=== PATIENT | female | born 1960 | race Caucasian/White ===

== ENCOUNTER 2017-02-22 07:58 | Inpatient (IN) ==
--- NOTE | 2017-02-21 21:23 | Discharge Summary ---
<Mela Gastelum - Last Filed: 02/21/17 21:18> Date of Encounter: 02/21/17 - Discharge Diagnosis (1) Arthritis of knee, right Priority: Primary Status: Acute (2) Status post total knee replacement, right Priority: Primary Status: Acute (3) HLD (hyperlipidemia) Priority: Secondary Status: Chronic Qualifiers: Hyperlipidemia type: pure hypercholesterolemia Qualified Code(s): E78.00 - Pure hypercholesterolemia, unspecified; E78.0 - Pure hypercholesterolemia (4) Obesity Priority: Secondary Status: Chronic Qualifiers: Obesity type: unspecified obesity type Obesity classification: unspecified obesity classification Serious obesity comorbidity presence: without serious comorbidity Qualified Code(s): E66.9 - Obesity, unspecified; Z68.36 - Body mass index (BMI) 36.0-36.9, adult; Z68.36 - Body mass index (BMI) 36.0-36.9, adult - Discharge Medications Home Medications: Aspirin Enteric Coated [Aspirin EC] 325 mg PO DAILY #21 tablet. 02/21/17 [Rx] OxyCODONE Immed Rel [Roxicodone 5 MG] 5 mg PO Q6HR PRN #28 tablet 02/21/17 [Rx] Meloxicam 15 mg PO HS 02/22/17 [History] Omeprazole [PriLOSEC] 20 mg PO HS 02/22/17 [History] Simvastatin [Zocor] 20 mg PO HS 02/22/17 [History] Allergies/Adverse Reactions: 3 Allergy/AdvReac Type Severity Reaction Status Date / Time doxycycline Allergy Nausea Verified 02/22/17 12:52 Penicillins [PCN] Allergy Difficulty Verified 02/22/17 12:52 Breathing Primary care physician: Marilin Barnes CNP - Patient Status Disposition: Home, Self-Care Condition: Good - Discharge Instructions Follow Up With: Reagan Badillo MD [Partnered Physician] - 03/24/17 5:55 pm Mela Gastelum, PAC [Physician Continuous Improvement Engineer] - 03/04/17 8:15 am Johnathan Willoughby MD [Partnered Physician] - 03/10/17 1:00 pm Marilin Barnes CNP [Primary Care Provider] - - Hospital Course Hospital course: Ms. Silva is a 56 year old female - Time Spent with Patient Total time spent providing and/or coordinating discharge services: <Reagan Badillo Toni - Last Filed: 02/24/17 08:53> Date of Encounter: 02/24/17 Time of Encounter: 08:52 - Discharge Diagnosis (1) Arthritis of knee, right Priority: Primary Status: Acute (2) Status post total knee replacement, right Priority: Primary Status: Chronic (3) HLD (hyperlipidemia) Priority: Secondary Status: Chronic Qualifiers: Hyperlipidemia type: pure hypercholesterolemia Qualified Code(s): E78.00 - Pure hypercholesterolemia, unspecified; E78.0 - Pure hypercholesterolemia (4) Obesity Priority: Secondary Status: Chronic Qualifiers: Obesity type: unspecified obesity type Obesity classification: adult class 2 (BMI 35 ? 39.9) Serious obesity comorbidity presence: without serious comorbidity Body mass index: BMI 36.0-36.9 Qualified Code(s): E66.9 - Obesity, unspecified; Z68.36 - Body mass index (BMI) 36.0-36.9, adult; Z68.36 - Body mass index (BMI) 36.0-36.9, adult Primary care physician: Marilin Barnes CNP - Patient Status Functional capacity at discharge: uses cane/walker Overall status at discharge: patient is progressing back to baseline - Hospital Course Hospital course: Ms. Silva is a 56 year old female Status post right total knee replacement patient with Tenderness we will check Doppler before discharge The patient had an uneventful postoperative course. They received antibiotics and physical therapy and were discharged in stable condition. There will follow -up in the office in 2 weeks. - Time Spent with Patient Total time spent providing and/or coordinating discharge services:
[2017-02-22] MEDS ORDERED: Ondansetron 4 MG/2 ML VIAL ONE (08:15)
[2017-02-22] MEDS ORDERED: *HR* Propofol 200 MG/20 ML VIAL IVP ONE (08:15)
[2017-02-22] MEDS ORDERED: Lidocaine -MPF 1% 2 ML VIAL ID ONE (08:15)
[2017-02-22] MEDS ORDERED: Lidocaine -MPF 2% 2 ML VIAL ONE (08:15)
[2017-02-22] MEDS ORDERED: *HR* FentaNYL (PF) 100 MCG/2 ML VIAL ONE ×3 (08:15→11:00)
[2017-02-22] MEDS ORDERED: *HR* Midazolam HCl 2 MG/2 ML VIAL ONE ×2 (08:15→08:40)
[2017-02-22] MEDS ORDERED: *HR* Succinylcholine 200 MG/10 ML VIAL IVP ONE (08:15)
[2017-02-22] MEDS ORDERED: *HR* Rocuronium Bromide 50 MG/5 ML VIAL ONE (08:15)
[2017-02-22] MEDS ORDERED: CeFAZolin Syr 2,000MG/20 ML 2,000 MG/20 ML SYRINGE IVPB ONE ×2 (08:15→11:53)
[2017-02-22] MEDS ORDERED: Albuterol 2.5 MG/3 ML NEBULIZER IH ONE (08:15)
--- NOTE | 2017-02-22 08:27 | Anesthesia Evaluation PreOp ---
Date of Encounter: 02/22/17 Time of Encounter: 08:20 - Past History Planned Operation: right TKA Cardiac History: Denies any Significant Hx Pulmonary History: Smoker, Pack/yr (30) GREY PERCHER History: Other (left partial brachial plexus palsy from ) Other Medical History: Denies Any Significant HX Anesthesia History: No Prior Anesthetic Complications, Past Anesthesia (tubal, right shoulder replacement) Alcohol Use: occasionally Drug use: none Medications and Allergies Aspirin Enteric Coated [Aspirin EC] 325 mg PO DAILY #21 tablet.dr 02/21/17 [Rx] OxyCODONE Immed Rel [Roxicodone 5 MG] 5 mg PO Q6HR PRN #28 tablet 02/21/17 [Rx] Meloxicam [Meloxicam] 15 mg PO HS 02/22/17 [History] Omeprazole [PriLOSEC] 20 mg PO HS 02/22/17 [History] Simvastatin [Zocor] 20 mg PO HS 02/22/17 [History] 3 Allergy/AdvReac Type Severity Reaction Status Date / Time No Known Allergies Allergy Verified 02/22/17 08:20 - Meds/Allergy Pre-op Review Medications Reviewed: Yes Allergies Reviewed: Yes Beta Blockers on Current Med List: No Anesthesia Exam Selected Entries 02/22/17 08:12 Temperature 98.2 F Pulse Rate 89 Respiratory Rate 18 Blood Pressure 155/100 O2 Sat by Pulse Oximetry 98 Weight: 113kg NPO (# of Hours): 8 - HEENT Pupil (Motor): EOMI Mallampati: II Teeth: Missing Oral Opening: Greater than 3 - GREY PERCHER LOC: Oriented GREY PERCHER Motor: Normal RUE, Normal LUE, Normal RLE, Normal LLE, Normal Face GREY PERCHER Sensory: Normal: RUE, LUE, RLE, LLE, Face - Cardiac Rhythm: Regular Murmur: None - Pulmonary Breath Sounds: bilateral Clear Respiratory Effort: Symmetrical Anesthesia Assess/Plan ASA Score: 2 Modified Lissy Scale for Level of Consciousness: Cooperative, oriented, and tranquil Anesthetic Plan: General Recovery Plan: PACU (discussed GA and block, agrees to proceed)
[2017-02-22] MEDS: Ringers Solution, Lactated 1,000 ML IVC SCH ×2 (08:32→10:56)
--- NOTE | 2017-02-22 08:32 | History & Physical Report ---
Date of Encounter: 02/22/17 Time of Encounter: 08:31 24 Hour HP Update - Instructions Instructions: If the History and Physical is less than 30 days old and was completed prior to A.M. admission and or procedure and has NOT been updated on calendar day of procedure please complete this update prior to performing procedure. - Update Patient reports changes in Medical Condition: No Changes in examination, assessment, or condition: No Changes in Medication: No Preop tests/diagnostics Reviewed: Yes Surgery Remains Indicated: Yes Consent for Planned Operative Procedure(s) Verified: Yes - Pre-Operative Checklist Preoperative Checklist Indicated: No Prophylactic Antibiotic Ordered: Yes Is VTE Prophylaxis Indicated?: Yes
[2017-02-22] MEDS ORDERED: ROPIVACAINE HCL/PF 0.5% 30 ML VIAL ONE (08:39)
[2017-02-22] MEDS ORDERED: Ondansetron 4 MG/2 ML VIAL IVP ONE (08:52)
[2017-02-22] MEDS ORDERED: *HR* Labetalol 20 MG/4 ML SYRINGE IVP PRN (08:52)
[2017-02-22] MEDS ORDERED: Clindamycin 900 MG/50 ML 900 MG/50 ML IV.SOLN IVPB ONE ×2 (09:05→10:19)
--- NOTE | 2017-02-22 09:25 | Anesthesia Procedures ---
Date of Encounter: 02/22/17 Time of Encounter: 09:11 Procedures: Anesthesia - Nerve Block Procedure Date: 02/22/17 Time: 09:11 Surgical Procedure: right total knee Checklist: Correct Patient Identifier, Correct procedure, History checked Correct side: Right Monitor Applied: BP, Pulse Oximetry Sedation: Versed (mg): 4 Sedation: Fentanyl (mcg): 100 Indication: Post Op Analgesia Block Type: Femoral, Other (ipack) Catheter placed: No Sterile Technique: Yes Ultrasound used: Yes Anatomy identified: Yes Visual spread of Local: Yes Neuro Stimulation: No Blood on Needle Aspiration: No Smooth Injection of Local: Yes Pain with Injection of Local: No Prep: Chlorhexadine Needle: 22 x 50 mm Stimuplex Local: Ropivacaine (30ml 0.5%), Other (30ml 0.25% rop) Volume (cc): 60 Number of Attempts: 1 Complications: None/effective block Vitals: vss, block per request of surgeon
[2017-02-22] MEDS ORDERED: Ethanol\\Acetic Acid\\Na Ace\\Ben 1,000 ML IRRIG.SOLN IR ONE (09:28)
[2017-02-22] MEDS ORDERED: Dexamethasone 4 MG/ML VIAL ONE (10:17)
--- NOTE | 2017-02-22 10:47 | Orthopedic Operative Note ---
Date of procedure: 02/22/17 Pre-op diagnosis: Right knee arthritis Post-op diagnosis: same Procedure: Procedure: Right Total knee replacement Estimated blood loss: 500 cc Hardware: Metal and polyethylene replacement. Arthrex Femur: 4 Tibia: 5 PS insert: 16 Patella: 40 Exam Under anesthesia: Full flexion full extension no instability Procedural Notes: Grade 4 arthritic changes all 3 compartments. Operative procedure: The patient was brought to the operating room and placed on the operating room table. After general anesthesia was administered the operative knee was examined. Findings were noted in the exam under anesthesia. The operative extremity was prepped and draped in sterile surgical fashion. The patient received IV antibiotics prior to skin incision. A standard midline incision was made centered over the patella. The incision was made through the skin and subcutaneous tissue. A medial parapatellar tendon approach was performed. Care was taken to preserve tissue along the medial aspect of the patella. And to protect the patella tendon. The deep MCL was released off the medial tibia. The infra patella fat pad was excised. Knee was brought into flexion. Patient noted to have grade 4 arthritic changes all 3 compartments. The entry hole was made for the intramedullary femoral guide. The guide was seated in 6 degrees of valgus. Anterior cut was made followed by the distal cut. The ACL the PCL the medial and the lateral menisci were excised. The tibia was subluxed forward. The entry hole was made for the intramedullary tibial guide. Guide was seated to resect 2 mm off the more abnormal side. The knee was brought into flexion the distal femur was sized to a 4. The femoral guide was seated, the anterior cut was made followed by the posterior condylar cut, followed by the chamfer cuts. The finishing guide was seated the box cut was made and the lug holes were drilled. The tibia was sized to a 5, the tibial tray was seated and prepared with the large drill followed by the fin cutter. Trial reduction revealed full extension no varus valgus instability with the appropriate 16 PS Arely. The patella was everted and cut was made at the level of the insertion of the quadriceps and patella tendon. The patella was sized to a 40 the guide was seated and the lug holes are drilled. Trial reduction revealed excellent patella tracking. All trial components were removed all bony surfaces were irrigated. The tibia was cemented first followed by the femur. The 16 PS Arely was seated and the knee was brought into full extension. The patella was cemented and held in place with the patellar holding clamp. After the cement had hardened, the knee sat for 2 minutes with a Betadine saline solution. The knee was closed by the PA. The knee was then irrigated out with 2 L of pulse irrigation. The extensor mechanism was closed with #2 FiberWire suture and #2 PDS suture. The subcutaneous tissue was then irrigated and closed deep with #1 PDS suture superficially with 0 PDS suture and skin was closed with zip tie. The patient was then placed in a sterile dressing and a postoperative brace extubated and transferred to recovery room in stable condition. Anesthesia: PATRICIA Surgeon: Reagan Badillo Software Implementation Project Manager: Brisa Mast Condition: stable Disposition: PACU
[2017-02-22] MEDS ORDERED: *HR* HYDROmorphone 2 MG/ML SYRINGE ONE (11:23)
[2017-02-22] MEDS: *HR* HYDROmorphone (PF) 1 MG/ML SYRINGE IVP PRN ×3 (11:27→20:29)
[2017-02-22 11:53] LABS: Hemoglobin 12.3 g/dL (11.5-15.4)
[2017-02-22] MEDS ORDERED: Naloxone 0.4 MG/ML INJ IVP PRN (11:53)
[2017-02-22] MEDS ORDERED: Ringers Solution, Lactated 1,000 ML IVC SCH (11:53)
[2017-02-22] MEDS ORDERED: MOM Conc 10 ML UD.LIQ PO PRN (11:53)
[2017-02-22] MEDS ORDERED: Temazepam 15 MG CAPSULE PO PRN (11:53)
[2017-02-22] MEDS ORDERED: *HR* OxyCODONE Immed Rel 5 MG TABLET PO PRN (11:53)
[2017-02-22] MEDS ORDERED: Sennosides 8.6 MG TABLET PO PRN (11:53)
[2017-02-22] MEDS ORDERED: Ondansetron 4 MG/2 ML VIAL IVP PRN (11:53)
--- NOTE | 2017-02-22 11:54 | Anesthesia Evaluation Post Op ---
Date of Encounter: 02/22/17 Time of Encounter: 11:52 - Vital Signs Vital Signs: vss - Lungs Lungs: Clear Ascult./Percussion - Airway Airway: Non-obstructed - Cardiovascular Baseline Rhythm - Mental Status Mental Status: Alert & Oriented, Answers Appropriately - Pain Pain Scale used: Wiseman-Segura (Faces) (no apparent distress.) - Nausea Vomiting Nausea Vomiting: Not Present - Hydration Hydration: Ice chips - Discharge PostOp Status: Transfer Patient to floor
[2017-02-22] MEDS: *HR* OxyCODONE Immed Rel 5 MG TABLET PO PRN ×3 (14:46→23:26)
[2017-02-22] MEDS: Clindamycin 900 MG/50 ML 900 MG/50 ML IV.SOLN IVPB SCH ×2 (14:46→23:25)
[2017-02-22] MEDS ORDERED: ceFAZolin 2,000 MG in D5% in Water 100 ML IVPB SCH (16:00)
--- NOTE | 2017-02-22 16:44 | Physician Discharge Referral ---
Home Health/Hosp Referral Info Transfer to: Home Health Attending Provider: Dr. Badillo Provider in Charge Post Discharge: PCP - Diagnosis (1) Arthritis of knee, right Priority: Primary Status: Acute (2) Status post total knee replacement, right Priority: Primary Status: Chronic (3) HLD (hyperlipidemia) Priority: Secondary Status: Chronic (4) Obesity Priority: Secondary Status: Chronic - Respiratory Orders None Smoking Cessation: Smoking cessation has been advised. For more information, call the [place] Tobacco Quit Line at 5-849-OBGN-NOW. - Diet/Nutrition Diet/Nutrition Orders: Regular - Activity Activity Orders: Up ad khris, Ambulate, Chair, Walker - Services Needed Following services are medically necessary services: Nursing, Home Health Aide, Physical Therapy, Occupational Therapy Home Care Orders: Opsite dressing, leave intact until first post-operative visit. If dressing becomes >50% saturated, contact office, remove dressing and place appropriate dressing in its place. Do not allow for dressing to get wet. Zipline dressing in place, plan to remove at POD#14-16. PT: Total Joint Precautions x 6 weeks Apply ICE/cold therapy wrap 3-6x/day for 20 minutes at a time. Encourage ambulation throughout the day and incentive spirometer 10x/hour. Elevate affected extremity above heart as tolerated. Brace: Knee immobilizer at night until first post-operative appointment. - Transfer Medications Home Medications: Aspirin Enteric Coated [Aspirin EC] 325 mg PO DAILY #21 tablet. 02/21/17 [Rx] OxyCODONE Immed Rel [Roxicodone 5 MG] 5 mg PO Q6HR PRN #28 tablet 02/21/17 [Rx] Meloxicam 15 mg PO HS 02/22/17 [History] Omeprazole [PriLOSEC] 20 mg PO HS 02/22/17 [History] Simvastatin [Zocor] 20 mg PO HS 02/22/17 [History] Allergies/Adverse Reactions: 3 Allergy/AdvReac Type Severity Reaction Status Date / Time doxycycline Allergy Nausea Verified 02/22/17 12:52 Penicillins [PCN] Allergy Difficulty Verified 02/22/17 12:52 Breathing Certification: Further, I certify that my clinical findings support that this patient is homebound (i.e. absences from home require considerable and taxing effort and are for medical reasons or congregational services or infrequently or short duration when for other reasons) because: Homebound Reason: Post-surgery restriction and or conditions limit ability to leave home Attestation: My signature below is to certify that this patient is under my care and that I, or nurse practitioner, or a physician's trade sales assistant working with me, has a face-to -face encounter with this patient.
[2017-02-22] MEDS: *HR* Enoxaparin 30 MG/0.3 ML SYRINGE SQ SCH (17:20)
[2017-02-22] MEDS ORDERED: *HR* Enoxaparin 30 MG/0.3 ML SYRINGE SQ SCH (18:00)
[2017-02-23] MEDS: *HR* HYDROmorphone (PF) 1 MG/ML SYRINGE IVP PRN ×3 (01:49→23:06)
[2017-02-23] MEDS: *HR* Enoxaparin 30 MG/0.3 ML SYRINGE SQ SCH ×2 (05:20→16:33)
[2017-02-23] MEDS: *HR* OxyCODONE Immed Rel 5 MG TABLET PO PRN ×4 (05:20→19:21)
[2017-02-23 05:48] LABS: Hematocrit 35.5 % (35.3-44.9); Hemoglobin 11.2 g/dL (11.5-15.4)
[2017-02-23 06:01] LABS: BUN/Creatinine Ratio 16 (6-26); Blood Urea Nitrogen 12 mg/dL (7-20); Calcium 8.8 mg/dL (8.6-10.8); Carbon Dioxide 29 mEq/L (19-29); Chloride 103 mEq/L (98-109); Glucose 120 mg/dL (70-99); Osmolality,Calculated 287 (280-300); Potassium 4.5 mEq/L (3.5-4.5); Sodium 138 mEq/L (136-145); eGFR For African Americans > 60 (> 60); eGFR For Non-African Americans > 60 (> 60)
--- NOTE | 2017-02-23 06:40 | Orthopedics Progress Note ---
Date of Encounter: 02/23/17 Time of Encounter: 06:39 - Assessment and Plan (1) Arthritis of knee, right Current Visit: No Status: Acute (2) Status post total knee replacement, right Current Visit: No Status: Chronic (3) HLD (hyperlipidemia) Current Visit: No Status: Chronic Qualifiers: Hyperlipidemia type: pure hypercholesterolemia Qualified Code(s): E78.00 - Pure hypercholesterolemia, unspecified; E78.0 - Pure hypercholesterolemia (4) Obesity Current Visit: No Status: Chronic Qualifiers: Obesity type: unspecified obesity type Obesity classification: adult class 2 (BMI 35 ? 39.9) Serious obesity comorbidity presence: without serious comorbidity Body mass index: BMI 36.0-36.9 Qualified Code(s): E66.9 - Obesity, unspecified; Z68.36 - Body mass index (BMI) 36.0-36.9, adult; Z68.36 - Body mass index (BMI) 36.0-36.9, adult Subjective Interval history: Patient was seen this morning doing well without complaints. Afebrile vital signs stable. Operative extremity: Neurovascularly intact Dressing clean dry and intact Calves nontender Assessment and plan: Continue with postoperative care Hematocrit 35 Objective Vital signs: Vital Signs Temp Pulse Resp BP Pulse Ox 02/23/17 06:34 97.9 F 80 17 110/69 96 02/23/17 00:30 98.3 F 72 18 127/76 96 02/22/17 19:06 98.1 F 83 17 116/81 94 02/22/17 15:04 97.6 F 78 15 133/85 92 02/22/17 13:51 97.6 F 92 16 138/91 92 02/22/17 13:00 97.6 F 82 16 135/90 99 02/22/17 12:52 98 F 74 16 133/87 100 02/22/17 12:10 98.6 F 72 16 128/82 99 02/22/17 12:02 100 02/22/17 12:00 98.1 F 76 14 138/93 95 02/22/17 11:50 98.1 F 80 14 132/97 96 02/22/17 11:40 76 18 132/85 97 02/22/17 11:30 80 18 119/87 92 02/22/17 11:20 97.9 F 88 16 145/91 92 02/22/17 09:41 139/102 02/22/17 09:40 76 96 02/22/17 09:25 81 144/96 95 02/22/17 09:05 83 160/93 96 02/22/17 08:38 18 155/100 98 02/22/17 08:12 98.2 F 89 18 155/100 98 Intake and Output 02/22/17 02/22/17 02/23/17 15:59 23:59 07:59 Intake Total 1320 / 1320 290 / 290 550 / 550 Output Total 500 / 500 200 / 200 Balance 820 / 820 90 / 90 550 / 550 Intake: IV Fluids 1000 / 1000 50 / 50 50 / 50 Lactated Ringers 1,000 ML @ 75 1000 / 1000 mls/hr IVC .[id number] ADAM Rx#: [id number] Cleocin Premix 900 MG/50 ML 900 50 / 50 50 / 50 mg In 50 ml @ 50 mls/hr IVPB Q8HR ADAM Rx#:[id number] Oral 320 / 320 240 / 240 500 / 500 Output: Urine 0 / 0 200 / 200 Estimated Blood Loss 500 / 500 Other: # Voids 1 1 2 Weight 112.945 kg - Labs CBC & BMP: 02/23/17 04:53 02/23/17 04:53 Labs: Abnormal lab results Hgb 11.2 g/dL (11.5-15.4) L 02/23/17 04:53 Glucose 120 mg/dL (70-99) H 02/23/17 04:53 - VTE Documentation of Mechanical Device: Venous foot pump, device Consult Discharge Plan - Plan Referrals: Marilin Barnes CNP [Primary Care Provider] -
--- NOTE | 2017-02-23 14:52 | Event Note ---
Date of Encounter: 02/23/17 Time of Encounter: 14:51 PCR - Right TKR 02/23/17 POD#.1 Labs: Stable Patient seen at bedside. Pain control: Adequate; Lidoderm patch started. Participating in PT. All questions and concerns addressed. Educated on use of incentive spirometer, ambulation, and hydration. Patient educated on post-operative restrictions and care. Addressed: See above D/C plan: HH, continuity placed
[2017-02-24] MEDS: *HR* OxyCODONE Immed Rel 5 MG TABLET PO PRN ×4 (00:20→12:43)
[2017-02-24 04:41] LABS: Hematocrit 33.2 % (35.3-44.9); Hemoglobin 10.6 g/dL (11.5-15.4)
[2017-02-24 05:02] LABS: BUN/Creatinine Ratio 13 (6-26); Blood Urea Nitrogen 9 mg/dL (7-20); Calcium 8.7 mg/dL (8.6-10.8); Carbon Dioxide 26 mEq/L (19-29); Chloride 101 mEq/L (98-109); Glucose 100 mg/dL (70-99); Osmolality,Calculated 281 (280-300); Potassium 3.9 mEq/L (3.5-4.5); Sodium 136 mEq/L (136-145); eGFR For African Americans > 60 (> 60); eGFR For Non-African Americans > 60 (> 60)
[2017-02-24] MEDS: *HR* Enoxaparin 30 MG/0.3 ML SYRINGE SQ SCH (05:12)
[2017-02-24 06:47] VITALS: BP 158/93
--- NOTE | 2017-02-24 08:54 | Orthopedics Progress Note ---
Date of Encounter: 02/24/17 Time of Encounter: 08:53 - Assessment and Plan (1) Arthritis of knee, right Current Visit: No Status: Acute (2) Status post total knee replacement, right Current Visit: No Status: Chronic (3) HLD (hyperlipidemia) Current Visit: No Status: Chronic Qualifiers: Hyperlipidemia type: pure hypercholesterolemia Qualified Code(s): E78.00 - Pure hypercholesterolemia, unspecified; E78.0 - Pure hypercholesterolemia (4) Obesity Current Visit: No Status: Chronic Qualifiers: Obesity type: unspecified obesity type Obesity classification: adult class 2 (BMI 35 ? 39.9) Serious obesity comorbidity presence: without serious comorbidity Body mass index: BMI 36.0-36.9 Qualified Code(s): E66.9 - Obesity, unspecified; Z68.36 - Body mass index (BMI) 36.0-36.9, adult; Z68.36 - Body mass index (BMI) 36.0-36.9, adult Subjective Interval history: Patient was seen this morning doing well without complaints. Afebrile vital signs stable. Operative extremity: Neurovascularly intact Dressing clean dry and intact Calves tender Assessment and plan: Continue with postoperative care Hematocrit 33 check Doppler before discharge plan for discharge today Objective Vital signs: Vital Signs Temp Pulse Resp BP Pulse Ox 02/24/17 06:45 98.2 F 99 18 158/93 97 02/24/17 00:09 98.3 F 99 14 130/75 95 02/23/17 21:04 98.4 F 98 16 130/68 92 02/23/17 14:53 97.9 F 87 16 120/76 96 Intake and Output 02/23/17 02/24/17 02/24/17 23:59 07:59 15:59 Intake Total 400 / 400 100 / 100 0 / 0 Balance 400 / 400 100 / 100 0 / 0 Intake: Oral 400 / 400 100 / 100 0 / 0 Other: # Voids 1 1 - Labs CBC & BMP: 02/24/17 03:54 02/24/17 03:54 Labs: Abnormal lab results Hgb 10.6 g/dL (11.5-15.4) L 02/24/17 03:54 Hct 33.2 % (35.3-44.9) L 02/24/17 03:54 Glucose 100 mg/dL (70-99) H 02/24/17 03:54 - VTE Documentation of Mechanical Device: Venous foot pump, device Consult Discharge Plan - Plan Referrals: Reagan Badillo MD [Partnered Physician] - 03/24/17 5:55 pm Mela Gastelum, PAC [Physician Restaurant General Manager] - 03/04/17 8:15 am Johnathan Willoughby MD [Partnered Physician] - 03/10/17 1:00 pm Barnes,Marilin López, CASTING WHEEL OPERATOR [Primary Care Provider] -
--- NOTE | 2017-02-24 12:14 | Event Note ---
Date of Encounter: 02/24/17 Time of Encounter: 13:00 PCR - Right TKR 02/23/17 POD#2 Labs: Stable Doppler today to be completed prior to discharge - negative D/C plan: Home with , continuity placed Patient seen while wheeling off floor for discharge.
== END 2017-02-24 15:39 | disposition home health service (06) | DRG 302 ==
LOC: SAMDAY 07:58 → 3NENU 12:07
PROVIDERS: ADMIT Orthopaedic Surgery; ATTEND Orthopaedic Surgery

== ENCOUNTER 2019-03-15 06:22 | Inpatient (IN) ==
[2019-03-15] MEDS ORDERED: Albuterol 2.5 MG/3 ML NEBULIZER IH PRN (06:47)
[2019-03-15] MEDS: Ringers Solution, Lactated 1,000 ML IVC SCH ×4 (07:10→21:20)
[2019-03-15] MEDS ORDERED: Lidocaine -MPF 4% 5 ML AMPUL ONE (07:26)
[2019-03-15] MEDS ORDERED: *HR* Midazolam HCl 2 MG/2 ML VIAL ONE (07:26)
[2019-03-15] MEDS ORDERED: Dexamethasone 4 MG/ML VIAL ONE (07:26)
[2019-03-15] MEDS ORDERED: Ondansetron 4 MG/2 ML VIAL ONE ×2 (07:26→10:06)
[2019-03-15] MEDS ORDERED: *HR* FentaNYL (PF) 100 MCG/2 ML VIAL ONE ×5 (07:26→14:08)
[2019-03-15] MEDS ORDERED: Lidocaine -MPF 2% 2 ML VIAL ONE (07:26)
[2019-03-15] MEDS ORDERED: *HR* Propofol 200 MG/20 ML VIAL IVP ONE (07:26)
[2019-03-15] MEDS ORDERED: *HR* Rocuronium Bromide 50 MG/5 ML VIAL ONE ×4 (07:26→12:37)
[2019-03-15] MEDS ORDERED: Ertapenem 1,000 MG in 0.9 % Sodium Chloride Mini Bag 100 ML IVPB ONE (07:34)
[2019-03-15] MEDS ORDERED: Gabapentin 300 MG CAPSULE PO ONE (07:35)
[2019-03-15] MEDS ORDERED: *HR* Labetalol 20 MG/4 ML SYRINGE IVP PRN (07:54)
[2019-03-15] MEDS ORDERED: *HR* OxyCODONE Immed Rel 5 MG TABLET PO PRN (07:56)
[2019-03-15] MEDS ORDERED: *HR* HYDROmorphone (PF) 1 MG/ML SYRINGE IVP PRN (07:56)
[2019-03-15] MEDS ORDERED: Bupivacaine-MPF 0.25% 10 ML VIAL ONE (09:33)
[2019-03-15] MEDS ORDERED: *HR* Labetalol 20 MG/4 ML SYRINGE IVP ONE (10:06)
[2019-03-15] MEDS ORDERED: Naloxone 0.4 MG/ML INJ IVP PRN ×2 (10:11→16:40)
[2019-03-15] MEDS ORDERED: 0.9 % Sodium Chloride 500 ML IVC PRN (10:11)
[2019-03-15] MEDS ORDERED: Morphine Sulfate/PF 10mg/10mL 10 MG, Bupivacaine-MPF 0.25% 125 ML in 0.9 % Sodium Chlor... EP SCH (10:15)
[2019-03-15] MEDS ORDERED: *HR* PHENYLEPHRINE 1,000 MCG/10 ML SYRINGE IVP ONE ×2 (10:18→11:51)
[2019-03-15] MEDS ORDERED: Ibuprofen 400 MG TABLET PO PRN ×2 (10:28→16:40)
[2019-03-15] MEDS ORDERED: Ondansetron 4 MG/2 ML VIAL IVP PRN ×2 (10:28→16:40)
[2019-03-15] MEDS ORDERED: *HR* Phenylephrine 10 MG/ML VIAL ONE (12:09)
[2019-03-15] MEDS ORDERED: Bupivacaine/EPI 1:200k 0.25%PF 30 ML VIAL ONE (13:43)
[2019-03-15] MEDS ORDERED: *HR* Promethazine 25 MG/ML VIAL IVP PRN (15:11)
[2019-03-15] MEDS ORDERED: Ringers Solution, Lactated 1,000 ML ONE (21:04)
[2019-03-16 02:43] LABS: Basophils % 0.2 %; Hematocrit 31.3 % (35.3-44.9); Immature Granulocytes % 0.3 % (0-4); Lymphocytes # 0.7 K/mcL (0.6-4.6); Mean Corpuscular HGB Conc 31.9 g/dL (31.6-35.5); Mean Corpuscular Hemoglobin 29.4 pg (28.0-33.3); Mean Corpuscular Volume 92.1 fL (83.0-100.0); Mean Platelet Volume 10.5 fL (9.4-12.4); Monocytes % 10.5 %; Neutrophils # 7.5 K/mcL (1.6-8.9); Platelet Count 210 K/mcL (140-400); Red Cell Distribution Width 16.3 % (11.5-14.5); White Blood Count 9.2 K/mcL (4.3-11.1)
[2019-03-16 03:03] LABS: BUN/Creatinine Ratio 13 (6-26); Blood Urea Nitrogen 13 mg/dL (6-20); Carbon Dioxide 26 mEq/L (23-29); Chloride 106 mEq/L (98-107); Glucose 107 mg/dL (70-105); Osmolality,Calculated 287 (280-300); Potassium 4.1 mEq/L (3.5-5.1); Sodium 138 mEq/L (136-145); eGFR For African Americans > 60 (> 60); eGFR For Non-African Americans 56 (> 60)
[2019-03-16] MEDS: Ertapenem 1,000 MG in 0.9 % Sodium Chloride Mini Bag 100 ML IVPB SCH (09:27)
[2019-03-16] MEDS: Pantoprazole 40 MG VIAL IVP SCH (09:27)
[2019-03-16] MEDS: Morphine Sulfate/PF 10mg/10mL 10 MG, Bupivacaine-MPF 0.25% 125 ML in 0.9 % Sodium Chlor... EP SCH ×2 (12:36→20:42)
[2019-03-16] MEDS ORDERED: *HR* OxyCODONE Immed Rel 5 MG TABLET PO PRN (13:26)
[2019-03-16] MEDS: Albuterol 2.5 MG/3 ML NEBULIZER IH SCH ×3 (15:35→22:44)
[2019-03-16] MEDS: Ringers Solution, Lactated 1,000 ML IVC SCH (16:20)
[2019-03-16] MEDS: D5% in 0.45% NACL 1,000 ML IVC SCH (16:28)
[2019-03-17] MEDS: Albuterol 2.5 MG/3 ML NEBULIZER IH SCH ×4 (04:13→21:58)
[2019-03-17 05:42] LABS: Basophils % 0.4 %; Eosinophils % 0.1 %; Hematocrit 28.7 % (35.3-44.9); Immature Granulocytes % 0.4 % (0-4); Lymphocytes # 0.9 K/mcL (0.6-4.6); Lymphocytes % 12.4 %; Mean Corpuscular HGB Conc 31.4 g/dL (31.6-35.5); Mean Corpuscular Volume 92.6 fL (83.0-100.0); Mean Platelet Volume 11.3 fL (9.4-12.4); Monocytes # 0.8 K/mcL (0.0-1.3); Monocytes % 10.1 %; Neutrophils # 5.8 K/mcL (1.6-8.9); Platelet Count 185 K/mcL (140-400); Red Cell Distribution Width 16.1 % (11.5-14.5); Segmented Neutrophils % 76.6 %; White Blood Count 7.6 K/mcL (4.3-11.1)
[2019-03-17 06:01] LABS: BUN/Creatinine Ratio 15 (6-26); Blood Urea Nitrogen 11 mg/dL (6-20); Calcium 8.1 mg/dL (8.6-10.3); Carbon Dioxide 27 mEq/L (23-29); Chloride 102 mEq/L (98-107); Glucose 99 mg/dL (70-105); Osmolality,Calculated 279 (280-300); Potassium 3.5 mEq/L (3.5-5.1); Sodium 135 mEq/L (136-145); eGFR For African Americans > 60 (> 60); eGFR For Non-African Americans > 60 (> 60)
[2019-03-17] MEDS: Pantoprazole 40 MG VIAL IVP SCH (09:47)
[2019-03-17] MEDS: Ertapenem 1,000 MG in 0.9 % Sodium Chloride Mini Bag 100 ML IVPB SCH (09:48)
[2019-03-17] MEDS: D5% in 0.45% NACL 1,000 ML IVC SCH (12:56)
[2019-03-17] MEDS ORDERED: Lidocaine -MPF 2% 2 ML VIAL ONE (17:26)
[2019-03-17] MEDS ORDERED: Bupivacaine-MPF 0.25% 10 ML VIAL ONE (17:28)
[2019-03-18] MEDS: Albuterol 2.5 MG/3 ML NEBULIZER IH SCH ×4 (04:11→22:48)
[2019-03-18] MEDS: D5% in 0.45% NACL 1,000 ML IVC SCH (05:35)
[2019-03-18] MEDS: Morphine Sulfate/PF 10mg/10mL 10 MG, Bupivacaine-MPF 0.25% 125 ML in 0.9 % Sodium Chlor... EP SCH ×2 (05:36→19:45)
[2019-03-18 08:00] LABS: Hematocrit 24.8 % (35.3-44.9); Hemoglobin 8.3 g/dL (11.5-15.4); Mean Corpuscular HGB Conc 33.5 g/dL (31.6-35.5); Mean Corpuscular Hemoglobin 29.7 pg (28.0-33.3); Mean Corpuscular Volume 88.9 fL (83.0-100.0); Mean Platelet Volume 10.6 fL (9.4-12.4); Platelet Count 169 K/mcL (140-400); Red Blood Count 2.79 M/mcL (3.82-4.97)
[2019-03-18 08:01] LABS: White Blood Count 3.7 K/mcL (4.3-11.1)
[2019-03-18 08:20] LABS: BUN/Creatinine Ratio 8 (6-26); Blood Urea Nitrogen 4 mg/dL (6-20); Calcium 7.9 mg/dL (8.6-10.3); Carbon Dioxide 29 mEq/L (23-29); Chloride 102 mEq/L (98-107); Glucose 105 mg/dL (70-105); Osmolality,Calculated 277 (280-300); Potassium 3.3 mEq/L (3.5-5.1); Sodium 135 mEq/L (136-145); eGFR For African Americans > 60 (> 60); eGFR For Non-African Americans > 60 (> 60)
[2019-03-18] MEDS: Ertapenem 1,000 MG in 0.9 % Sodium Chloride Mini Bag 100 ML IVPB SCH (09:22)
[2019-03-18] MEDS: Pantoprazole 40 MG VIAL IVP SCH (09:24)
[2019-03-19 03:41] LABS: Basophils % 0.6 %; Eosinophils # 0.1 K/mcL (0.0-0.6); Eosinophils % 3.1 %; Hematocrit 26.1 % (35.3-44.9); Hemoglobin 8.5 g/dL (11.5-15.4); Immature Granulocytes % 0.6 % (0-4); Lymphocytes # 0.8 K/mcL (0.6-4.6); Lymphocytes % 24.2 %; Mean Corpuscular HGB Conc 32.6 g/dL (31.6-35.5); Mean Corpuscular Hemoglobin 28.8 pg (28.0-33.3); Mean Corpuscular Volume 88.5 fL (83.0-100.0); Mean Platelet Volume 10.5 fL (9.4-12.4); Monocytes # 0.4 K/mcL (0.0-1.3); Monocytes % 12.6 %; Neutrophils # 1.9 K/mcL (1.6-8.9); Platelet Count 205 K/mcL (140-400); Red Blood Count 2.95 M/mcL (3.82-4.97); Red Cell Distribution Width 15.9 % (11.5-14.5); Segmented Neutrophils % 58.9 %; White Blood Count 3.3 K/mcL (4.3-11.1)
[2019-03-19] MEDS: Albuterol 2.5 MG/3 ML NEBULIZER IH SCH ×4 (04:01→22:36)
[2019-03-19 04:06] LABS: BUN/Creatinine Ratio 6 (6-26); Blood Urea Nitrogen 3 mg/dL (6-20); Calcium 8.4 mg/dL (8.6-10.3); Carbon Dioxide 29 mEq/L (23-29); Chloride 104 mEq/L (98-107); Glucose 98 mg/dL (70-105); Osmolality,Calculated 285 (280-300); Potassium 3.8 mEq/L (3.5-5.1); Sodium 139 mEq/L (136-145); eGFR For African Americans > 60 (> 60); eGFR For Non-African Americans > 60 (> 60)
[2019-03-19] MEDS: Ertapenem 1,000 MG in 0.9 % Sodium Chloride Mini Bag 100 ML IVPB SCH (09:41)
[2019-03-19] MEDS ORDERED: *HR* OxyCODONE Immed Rel 5 MG TABLET PO PRN (13:30)
[2019-03-19] MEDS: Acetaminophen 325 MG TABLET PO PRN (15:56)
[2019-03-20] MEDS: Acetaminophen 325 MG TABLET PO PRN (00:44)
[2019-03-20 01:20] LABS: Basophils % 0.9 %; Eosinophils # 0.1 K/mcL (0.0-0.6); Eosinophils % 3.4 %; Hematocrit 27.2 % (35.3-44.9); Hemoglobin 8.6 g/dL (11.5-15.4); Immature Granulocytes % 0.3 % (0-4); Lymphocytes # 1.1 K/mcL (0.6-4.6); Lymphocytes % 31.7 %; Mean Corpuscular HGB Conc 31.6 g/dL (31.6-35.5); Mean Corpuscular Volume 91.6 fL (83.0-100.0); Mean Platelet Volume 10.6 fL (9.4-12.4); Monocytes # 0.5 K/mcL (0.0-1.3); Neutrophils # 1.7 K/mcL (1.6-8.9); Platelet Count 229 K/mcL (140-400); Red Blood Count 2.97 M/mcL (3.82-4.97); Red Cell Distribution Width 15.9 % (11.5-14.5); Segmented Neutrophils % 49.7 %; White Blood Count 3.5 K/mcL (4.3-11.1)
[2019-03-20] MEDS: Albuterol 2.5 MG/3 ML NEBULIZER IH SCH ×2 (04:44→11:06)
[2019-03-20 08:11] VITALS: BP 143/96
== END 2019-03-20 14:17 | disposition home health service (06) | DRG 330 ==
LOC: SAMDAY 06:22 → 3ANU 16:12
PROVIDERS: ADMIT Surgery; ATTEND Surgery

== ENCOUNTER 2019-09-09 18:50 | Inpatient (IN) ==
[2019-09-09 19:22] LABS: Basophils # 0.1 K/mcL (0.0-0.2); Basophils % 1.3 %; Eosinophils # 0.1 K/mcL (0.0-0.6); Eosinophils % 1.9 %; Hematocrit 33.8 % (35.3-44.9); Hemoglobin 10.3 g/dL (11.5-15.4); Immature Granulocytes % 0.2 % (0-4); Lymphocytes # 1.6 K/mcL (0.6-4.6); Lymphocytes % 29.3 %; Mean Corpuscular HGB Conc 30.5 g/dL (31.6-35.5); Mean Corpuscular Hemoglobin 23.7 pg (28.0-33.3); Mean Corpuscular Volume 77.9 fL (83.0-100.0); Mean Platelet Volume 9.5 fL (9.4-12.4); Monocytes # 0.4 K/mcL (0.0-1.3); Monocytes % 8.3 %; Neutrophils # 3.1 K/mcL (1.6-8.9); Platelet Count 287 K/mcL (140-400); Red Blood Count 4.34 M/mcL (3.82-4.97); Red Cell Distribution Width 17.5 % (11.5-14.5); White Blood Count 5.3 K/mcL (4.3-11.1)
[2019-09-09 19:40] LABS: BUN/Creatinine Ratio 18 (6-26); Blood Urea Nitrogen 14 mg/dL (6-20); Calcium 9.1 mg/dL (8.6-10.3); Carbon Dioxide 24 mEq/L (23-29); Chloride 105 mEq/L (98-107); Glucose 168 mg/dL (70-105); Magnesium 1.6 mg/dL (1.6-2.6); Osmolality,Calculated 284 (280-300); Potassium 3.5 mEq/L (3.5-5.1); Sodium 135 mEq/L (136-145); eGFR For African Americans > 60 (> 60); eGFR For Non-African Americans > 60 (> 60)
[2019-09-09 20:43] LABS: Bilirubin,Urine Small (Negative); Blood,Urine Negative (Negative); Clarity,Urine Clear (Clear); Color,Urine Yellow (Yellow); Glucose,Urine (UA) Normal (Normal); Ketones,Urine Negative (Negative); Leukocyte Esterase,Urine Negative (Negative); Nitrite,Urine Negative (Negative); PH,Urine 5.5 pH Units (5.0-8.0); Protein,Urine Negative (Neg-Trace); Specific Gravity,Urine 1.027 (1.010-1.025); Urobilinogen,Urine Normal (Normal)
[2019-09-09 20:53] LABS: Amphetamine Screen,Urine Negative ng/mL (Cutoff=1000); Barbiturate Screen,Urine Negative ng/mL (Cutoff=200); Benzodiazepines Screen,Urine Negative ng/mL (Cutoff=200); Cannabinoid Screen,Urine Negative ng/mL (Cutoff = 50); Cocaine Screen,Urine Negative ng/mL (Cutoff= 300); Opiate Screen,Urine Negative ng/mL (Cutoff=300); Phencyclidine Screen,Urine Negative ng/mL (Cutoff=25)
[2019-09-09] MEDS ORDERED: levETIRAcetam 1,000 MG in 0.9 % Sodium Chloride 100 ML IVPB ONE ×2 (21:12→21:23)
[2019-09-09 21:39] LABS: Ethanol < 10 mg/dL (Less than 10)
[2019-09-09] MEDS ORDERED: Naloxone 0.4 MG/ML INJ IVP PRN (23:14)
[2019-09-09] MEDS ORDERED: *HR* LORazepam 2 MG/ML VIAL IVP PRN ×3 (23:14)
[2019-09-09] MEDS ORDERED: 0.9 % Sodium Chloride 1,000 ML IVC SCH (23:15)
[2019-09-09] MEDS: Nicotine 14 MG PATCH.TD24 TD SCH (23:35)
[2019-09-10] MEDS: levETIRAcetam 250 MG TABLET PO SCH ×2 (05:04→18:05)
[2019-09-10 06:14] LABS: Basophils # 0.1 K/mcL (0.0-0.2); Basophils % 1.5 %; Eosinophils # 0.1 K/mcL (0.0-0.6); Hematocrit 30.7 % (35.3-44.9); Hemoglobin 9.2 g/dL (11.5-15.4); Lymphocytes # 1.4 K/mcL (0.6-4.6); Lymphocytes % 41.8 %; Mean Corpuscular Hemoglobin 23.6 pg (28.0-33.3); Mean Corpuscular Volume 78.7 fL (83.0-100.0); Mean Platelet Volume 9.7 fL (9.4-12.4); Monocytes # 0.4 K/mcL (0.0-1.3); Monocytes % 10.8 %; Neutrophils # 1.5 K/mcL (1.6-8.9); Platelet Count 242 K/mcL (140-400); Red Cell Distribution Width 17.8 % (11.5-14.5); Segmented Neutrophils % 43.9 %; White Blood Count 3.4 K/mcL (4.3-11.1)
[2019-09-10 06:19] LABS: Prothrombin Time 11.2 Seconds (9.4-12.1)
[2019-09-10 06:38] LABS: % Iron Saturation 9 % (15-50); Alanine Aminotransferase 7 Units/L (7-52); Albumin 3.5 g/dL (3.5-5.7); Albumin/Globulin Ratio 1.5 (1.1-2.2); Alkaline Phosphatase 76 Units/L (34-104); Aspartate Amino Transferase 10 Units/L (13-39); BUN/Creatinine Ratio 19 (6-26); Bilirubin,Total 0.7 mg/dL (0.3-1.0); Blood Urea Nitrogen 13 mg/dL (6-20); Calcium 8.7 mg/dL (8.6-10.3); Carbon Dioxide 25 mEq/L (23-29); Chloride 106 mEq/L (98-107); Chol/HDL Ratio 2.7 (0-4.9); Cholesterol 208 mg/dL (< 200); Globulin 2.4 g/dL (2.4-3.5); Glucose 91 mg/dL (70-105); HDL Cholesterol 76 mg/dL (40-59); Iron 50 mcg/dL (50-170); LDL Cholesterol,Calculated 109 mg/dL (0-99); Magnesium 1.7 mg/dL (1.6-2.6); Osmolality,Calculated 288 (280-300); Phosphorous 3.9 mg/dL (2.7-4.5); Potassium 3.4 mEq/L (3.5-5.1); Sodium 139 mEq/L (136-145); Total Protein 5.9 g/dL (6.4-8.9); Transferrin 384 mg/dL (203-362); Triglycerides 116 mg/dL (< 150); Troponin I < 0.03 ng/mL (< 0.04); eGFR For African Americans > 60 (> 60); eGFR For Non-African Americans > 60 (> 60)
[2019-09-10 06:52] LABS: Thyroid Stimulating Hormone 2.061 mcIU/mL (0.340-5.600)
[2019-09-10 06:58] LABS: Ferritin < 8 ng/mL (10-120)
[2019-09-10 07:00] LABS: Folate 7.9 ng/mL (3.0-16.0)
[2019-09-10] MEDS: Thiamine (B-1) 100 MG TABLET PO SCH (09:34)
[2019-09-10] MEDS: Folic Acid 1 MG TABLET PO SCH (09:34)
[2019-09-10] MEDS: Vitamin B Complex/Vit C/Vit E 1 EACH TABLET PO SCH (09:34)
[2019-09-10] MEDS: Nicotine 14 MG PATCH.TD24 TD SCH (09:35)
[2019-09-10] MEDS: Cyanocobalamin (B-12) 1,000 MCG/ML VIAL SQ SCH (18:10)
[2019-09-10] MEDS: *HR* Heparin 5,000 UNIT/ML VIAL SQ SCH (18:10)
[2019-09-10] MEDS ORDERED: Acetaminophen 325 MG TABLET PO PRN (18:24)
[2019-09-11] MEDS: levETIRAcetam 250 MG TABLET PO SCH (05:19)
[2019-09-11] MEDS: *HR* Heparin 5,000 UNIT/ML VIAL SQ SCH (05:19)
[2019-09-11] MEDS: Thiamine (B-1) 100 MG TABLET PO SCH (09:21)
[2019-09-11] MEDS: Vitamin B Complex/Vit C/Vit E 1 EACH TABLET PO SCH (09:21)
[2019-09-11] MEDS: Cyanocobalamin (B-12) 1,000 MCG/ML VIAL SQ SCH (09:21)
[2019-09-11] MEDS: Folic Acid 1 MG TABLET PO SCH (09:21)
[2019-09-11] MEDS: Nicotine 14 MG PATCH.TD24 TD SCH (09:22)
[2019-09-11 10:48] VITALS: BP 136/84
[2019-09-11 10:54] LABS: Estimated Average Glucose 108 mg/dl
== END 2019-09-11 12:54 | disposition home or self-care (01) | DRG 101 ==
LOC: 2ANU 18:50 → EMEROOARM 18:50 → 2ANU 22:37
PROVIDERS: ADMIT Internal Medicine; ATTEND Internal Medicine

== ENCOUNTER 2019-12-25 19:59 | Inpatient (IN) ==
[2019-12-25] MEDS ORDERED: 0.9 % Sodium Chloride 500 ML IVC ONE (20:25)
[2019-12-25 20:45] LABS: Basophils % 0.6 %; Eosinophils # 0.1 K/mcL (0.0-0.6); Eosinophils % 2.6 %; Hematocrit 47.8 % (35.3-44.9); Hemoglobin 15.4 g/dL (11.5-15.4); Immature Granulocytes % 0.4 % (0-4); Lymphocytes # 1.7 K/mcL (0.6-4.6); Mean Corpuscular HGB Conc 32.2 g/dL (31.6-35.5); Mean Corpuscular Hemoglobin 30.6 pg (28.0-33.3); Mean Platelet Volume 9.8 fL (9.4-12.4); Monocytes # 0.5 K/mcL (0.0-1.3); Monocytes % 9.6 %; Neutrophils # 2.4 K/mcL (1.6-8.9); Platelet Count 226 K/mcL (140-400); Red Blood Count 5.03 M/mcL (3.82-4.97); Red Cell Distribution Width 15.9 % (11.5-14.5); Segmented Neutrophils % 50.8 %; White Blood Count 4.7 K/mcL (4.3-11.1)
[2019-12-25 21:21] LABS: Alanine Aminotransferase 12 Units/L (7-52); Albumin 4.3 g/dL (3.5-5.7); Albumin/Globulin Ratio 1.3 (1.1-2.2); Alkaline Phosphatase 90 Units/L (34-104); Aspartate Amino Transferase 16 Units/L (13-39); BUN/Creatinine Ratio 17 (6-26); Bilirubin,Total 0.6 mg/dL (0.3-1.0); Blood Urea Nitrogen 14 mg/dL (6-20); Calcium 9.8 mg/dL (8.6-10.3); Carbon Dioxide 25 mEq/L (23-29); Chloride 103 mEq/L (98-107); Globulin 3.2 g/dL (2.4-3.5); Glucose 94 mg/dL (70-105); Lipase 23 Units/L (11-82); Osmolality,Calculated 286 (280-300); Potassium 3.6 mEq/L (3.5-5.1); Sodium 138 mEq/L (136-145); Total Protein 7.5 g/dL (6.4-8.9); eGFR For African Americans > 60 (> 60); eGFR For Non-African Americans > 60 (> 60)
[2019-12-25 22:01] LABS: Bilirubin,Urine Negative (Negative); Blood,Urine Negative (Negative); Clarity,Urine Clear (Clear); Color,Urine Yellow (Yellow); Glucose,Urine (UA) Normal (Normal); Ketones,Urine Negative (Negative); Leukocyte Esterase,Urine Negative (Negative); Nitrite,Urine Negative (Negative); Protein,Urine Trace mg/dL (Neg-Trace); Specific Gravity,Urine 1.029 (1.010-1.025); Urobilinogen,Urine Normal (Normal)
[2019-12-25] MEDS ORDERED: Ondansetron 4 MG/2 ML VIAL IVP PRN (23:34)
[2019-12-25] MEDS ORDERED: Naloxone 0.4 MG/ML INJ IVP PRN (23:34)
[2019-12-25] MEDS: Ringers Solution, Lactated 1,000 ML IVC SCH (23:51)
[2019-12-26 05:44] LABS: Basophils % 0.9 %; Eosinophils # 0.1 K/mcL (0.0-0.6); Eosinophils % 2.5 %; Hematocrit 44.5 % (35.3-44.9); Hemoglobin 14.1 g/dL (11.5-15.4); Immature Granulocytes % 0.4 % (0-4); Lymphocytes # 1.4 K/mcL (0.6-4.6); Lymphocytes % 31.7 %; Mean Corpuscular HGB Conc 31.7 g/dL (31.6-35.5); Mean Corpuscular Hemoglobin 29.9 pg (28.0-33.3); Mean Corpuscular Volume 94.5 fL (83.0-100.0); Mean Platelet Volume 10.3 fL (9.4-12.4); Monocytes # 0.5 K/mcL (0.0-1.3); Monocytes % 11.4 %; Neutrophils # 2.4 K/mcL (1.6-8.9); Platelet Count 194 K/mcL (140-400); Red Blood Count 4.71 M/mcL (3.82-4.97); Red Cell Distribution Width 15.8 % (11.5-14.5); Segmented Neutrophils % 53.1 %; White Blood Count 4.5 K/mcL (4.3-11.1)
[2019-12-26 05:51] LABS: Prothrombin Time 10.8 Seconds (9.4-12.1)
[2019-12-26] MEDS: *HR* Heparin 5,000 UNIT/ML VIAL SQ SCH ×3 (06:01→21:46)
[2019-12-26 06:02] LABS: BUN/Creatinine Ratio 18 (6-26); Blood Urea Nitrogen 12 mg/dL (6-20); Calcium 9.1 mg/dL (8.6-10.3); Carbon Dioxide 22 mEq/L (23-29); Chloride 107 mEq/L (98-107); Glucose 87 mg/dL (70-105); Magnesium 1.7 mg/dL (1.6-2.6); Osmolality,Calculated 283 (280-300); Potassium 3.7 mEq/L (3.5-5.1); Sodium 137 mEq/L (136-145); eGFR For African Americans > 60 (> 60); eGFR For Non-African Americans > 60 (> 60)
[2019-12-26] MEDS: Ringers Solution, Lactated 1,000 ML IVC SCH ×3 (08:17→21:47)
[2019-12-26] MEDS ORDERED: Acetaminophen 325 MG TABLET PO PRN (12:52)
[2019-12-26] MEDS ORDERED: Lidocaine -MPF 1% 5 ML AMPUL INFILT ONE (15:09)
[2019-12-26] MEDS ORDERED: Pantoprazole 40 MG VIAL IVP ONE (21:48)
[2019-12-27 03:44] LABS: Hematocrit 43.1 % (35.3-44.9); Mean Corpuscular HGB Conc 32.5 g/dL (31.6-35.5); Mean Corpuscular Hemoglobin 30.6 pg (28.0-33.3); Mean Corpuscular Volume 94.1 fL (83.0-100.0); Mean Platelet Volume 9.9 fL (9.4-12.4); Platelet Count 170 K/mcL (140-400); Red Blood Count 4.58 M/mcL (3.82-4.97); Red Cell Distribution Width 15.6 % (11.5-14.5); White Blood Count 4.2 K/mcL (4.3-11.1)
[2019-12-27 03:58] LABS: BUN/Creatinine Ratio 11 (6-26); Blood Urea Nitrogen 7 mg/dL (6-20); Calcium 9.2 mg/dL (8.6-10.3); Carbon Dioxide 24 mEq/L (23-29); Chloride 107 mEq/L (98-107); Glucose 77 mg/dL (70-105); Osmolality,Calculated 283 (280-300); Potassium 3.6 mEq/L (3.5-5.1); Sodium 138 mEq/L (136-145); eGFR For African Americans > 60 (> 60); eGFR For Non-African Americans > 60 (> 60)
[2019-12-27] MEDS: *HR* Heparin 5,000 UNIT/ML VIAL SQ SCH (06:09)
[2019-12-27] MEDS ORDERED: Pantoprazole 40 MG VIAL IVP SCH (09:00)
[2019-12-27] MEDS ORDERED: 0.9 % Sodium Chloride 500 ML IVC PRN (09:45)
[2019-12-27] MEDS ORDERED: *HR* Ropivacaine/PF 0.2% 10 ML AMPUL EP ONE (09:45)
[2019-12-27] MEDS ORDERED: Naloxone 0.4 MG/ML INJ IVP PRN ×3 (09:45→19:56)
[2019-12-27] MEDS ORDERED: *HR* Meperidine 25 MG/ML SYRINGE IVP PRN (09:48)
[2019-12-27] MEDS ORDERED: *HR* FentaNYL (PF) 100 MCG/2 ML VIAL IVP PRN (09:48)
[2019-12-27] MEDS ORDERED: *HR* Midazolam HCl 2 MG/2 ML VIAL IVP PRN (09:48)
[2019-12-27] MEDS ORDERED: *HR* Promethazine 25 MG/ML VIAL IVP PRN (09:48)
[2019-12-27] MEDS ORDERED: *HR* HYDROmorphone PF 0.5 MG/0.5 ML SYRINGE IVP PRN (09:48)
[2019-12-27] MEDS: Ringers Solution, Lactated 1,000 ML IVC SCH ×2 (10:03→20:41)
[2019-12-27] MEDS ORDERED: *HR* Rocuronium Bromide 50 MG/5 ML VIAL ONE ×3 (11:11→15:12)
[2019-12-27] MEDS ORDERED: Ondansetron 4 MG/2 ML VIAL ONE (11:11)
[2019-12-27] MEDS ORDERED: Lidocaine -MPF 2% 2 ML VIAL ONE (11:11)
[2019-12-27] MEDS ORDERED: *HR* Propofol 200 MG/20 ML VIAL IVP ONE ×2 (11:11→18:38)
[2019-12-27] MEDS ORDERED: *HR* FentaNYL (PF) 100 MCG/2 ML VIAL ONE ×2 (11:11→14:50)
[2019-12-27] MEDS ORDERED: *HR* Succinylcholine 200 MG/10 ML VIAL IVP ONE (11:11)
[2019-12-27] MEDS ORDERED: Ertapenem 1,000 MG in 0.9 % Sodium Chloride Mini Bag 100 ML IVPB SCH (13:00)
[2019-12-27] MEDS ORDERED: Isovue-300 50ML VIAL ONE (13:19)
[2019-12-27] MEDS: Ropivacaine/PF 0.2% 200 ML EP SCH ×3 (14:15→20:45)
[2019-12-27] MEDS ORDERED: Albumin Human 5% 25.0 GM/500 ML IV.SOLN ONE (14:19)
[2019-12-27] MEDS ORDERED: *HR* PHENYLEPHRINE 1,000 MCG/10 ML SYRINGE IVP ONE (14:56)
[2019-12-27] MEDS ORDERED: *HR* HYDROMORPHONE 2 MG/ML VIAL ONE (15:27)
[2019-12-27] MEDS ORDERED: Ondansetron 4 MG/2 ML VIAL IVP PRN (19:56)
[2019-12-27] MEDS: Acetaminophen IV 1,000 MG/100 ML INFUS..BTL IVPB PRN (21:45)
[2019-12-28] MEDS: Ringers Solution, Lactated 1,000 ML IVC SCH (04:23)
[2019-12-28] MEDS: Acetaminophen IV 1,000 MG/100 ML INFUS..BTL IVPB PRN ×2 (04:51→14:33)
[2019-12-28 05:15] LABS: Basophils % 0.1 %; Hemoglobin 13.5 g/dL (11.5-15.4); Immature Granulocytes % 0.1 % (0-4); Lymphocytes # 0.3 K/mcL (0.6-4.6); Lymphocytes % 4.8 %; Mean Corpuscular HGB Conc 32.9 g/dL (31.6-35.5); Mean Corpuscular Volume 94.3 fL (83.0-100.0); Mean Platelet Volume 10.4 fL (9.4-12.4); Monocytes # 0.9 K/mcL (0.0-1.3); Monocytes % 12.2 %; Platelet Count 181 K/mcL (140-400); Red Blood Count 4.35 M/mcL (3.82-4.97); Red Cell Distribution Width 15.5 % (11.5-14.5); Segmented Neutrophils % 82.8 %
[2019-12-28 05:18] LABS: Neutrophils # 5.9 K/mcL (1.6-8.9); White Blood Count 7.1 K/mcL (4.3-11.1)
[2019-12-28 05:31] LABS: BUN/Creatinine Ratio 15 (6-26); Blood Urea Nitrogen 10 mg/dL (6-20); Calcium 8.6 mg/dL (8.6-10.3); Carbon Dioxide 22 mEq/L (23-29); Chloride 105 mEq/L (98-107); Glucose 103 mg/dL (70-105); Magnesium 1.3 mg/dL (1.6-2.6); Osmolality,Calculated 285 (280-300); Phosphorous 4.2 mg/dL (2.7-4.5); Potassium 3.7 mEq/L (3.5-5.1); Sodium 138 mEq/L (136-145); eGFR For African Americans > 60 (> 60); eGFR For Non-African Americans > 60 (> 60)
[2019-12-28] MEDS: Pantoprazole 40 MG VIAL IVP SCH (08:43)
[2019-12-28 09:47] LABS: Triglycerides 66 mg/dL (< 150)
[2019-12-28] MEDS: Ropivacaine/PF 0.2% 200 ML EP SCH (11:21)
[2019-12-28] MEDS: D5% in 0.45% NACL 1,000 ML IVC SCH ×2 (13:16→22:23)
[2019-12-28] MEDS: MetroNIDAZOLE 500 MG/100 ML 500 MG/100 ML BAG IVPB SCH ×2 (13:16→22:25)
[2019-12-28] MEDS ORDERED: ROPIVACAINE/PF/NS 0.25% 1 EACH SYRINGE INTRAART ONE (13:29)
[2019-12-28] MEDS ORDERED: *HR* PHENYLEPHRINE 1,000 MCG/10 ML SYRINGE IVP ONE (13:30)
[2019-12-28] MEDS ORDERED: Ertapenem 1,000 MG in 0.9 % Sodium Chloride Mini Bag 100 ML IVPB SCH (14:00)
[2019-12-28] MEDS ORDERED: Morphine Sulfate 2 MG/ML SYRINGE IVP ONE (21:58)
[2019-12-29] MEDS: MetroNIDAZOLE 500 MG/100 ML 500 MG/100 ML BAG IVPB SCH ×3 (05:07→22:21)
[2019-12-29 05:24] LABS: Basophils % 0.2 %; Eosinophils # 0.1 K/mcL (0.0-0.6); Eosinophils % 1.2 %; Hematocrit 37.5 % (35.3-44.9); Immature Granulocytes % 0.8 % (0-4); Lymphocytes # 0.5 K/mcL (0.6-4.6); Lymphocytes % 5.4 %; Mean Corpuscular Hemoglobin 30.9 pg (28.0-33.3); Mean Corpuscular Volume 96.6 fL (83.0-100.0); Mean Platelet Volume 10.2 fL (9.4-12.4); Monocytes % 11.1 %; Neutrophils # 7.2 K/mcL (1.6-8.9); Platelet Count 159 K/mcL (140-400); Red Blood Count 3.88 M/mcL (3.82-4.97); Red Cell Distribution Width 15.7 % (11.5-14.5); Segmented Neutrophils % 81.3 %; White Blood Count 8.9 K/mcL (4.3-11.1)
[2019-12-29 05:43] LABS: BUN/Creatinine Ratio 13 (6-26); Blood Urea Nitrogen 7 mg/dL (6-20); Calcium 8.3 mg/dL (8.6-10.3); Carbon Dioxide 24 mEq/L (23-29); Chloride 104 mEq/L (98-107); Glucose 126 mg/dL (70-105); Magnesium 1.8 mg/dL (1.6-2.6); Osmolality,Calculated 280 (280-300); Potassium 3.9 mEq/L (3.5-5.1); Sodium 135 mEq/L (136-145); eGFR For African Americans > 60 (> 60); eGFR For Non-African Americans > 60 (> 60)
[2019-12-29] MEDS: Pantoprazole 40 MG VIAL IVP SCH (07:45)
[2019-12-29] MEDS ORDERED: Potassium Phosphate 44 MEQ in 0.9 % Sodium Chloride 250 ML IVPB ONE (08:32)
[2019-12-29] MEDS: D5% in 0.45% NACL 1,000 ML IVC SCH ×2 (10:10→17:48)
[2019-12-29] MEDS ORDERED: Acetaminophen 325 MG TABLET PO PRN (14:25)
[2019-12-29] MEDS: *HR* Heparin 5,000 UNIT/ML VIAL SQ SCH (17:47)
[2019-12-29] MEDS: *HR* OxyCODONE Immed Rel 5 MG TABLET PO PRN (17:47)
[2019-12-30] MEDS: *HR* OxyCODONE Immed Rel 5 MG TABLET PO PRN ×4 (00:20→22:06)
[2019-12-30] MEDS: *HR* Heparin 5,000 UNIT/ML VIAL SQ SCH ×2 (05:00→17:50)
[2019-12-30 05:03] LABS: Basophils % 0.3 %; Eosinophils # 0.3 K/mcL (0.0-0.6); Eosinophils % 3.5 %; Hematocrit 33.7 % (35.3-44.9); Hemoglobin 10.9 g/dL (11.5-15.4); Immature Granulocytes % 0.7 % (0-4); Lymphocytes # 0.6 K/mcL (0.6-4.6); Lymphocytes % 8.9 %; Mean Corpuscular HGB Conc 32.3 g/dL (31.6-35.5); Mean Corpuscular Hemoglobin 31.3 pg (28.0-33.3); Mean Corpuscular Volume 96.8 fL (83.0-100.0); Mean Platelet Volume 10.6 fL (9.4-12.4); Monocytes # 0.7 K/mcL (0.0-1.3); Monocytes % 10.1 %; Neutrophils # 5.4 K/mcL (1.6-8.9); Platelet Count 154 K/mcL (140-400); Red Blood Count 3.48 M/mcL (3.82-4.97); Red Cell Distribution Width 15.4 % (11.5-14.5); Segmented Neutrophils % 76.5 %; White Blood Count 7.1 K/mcL (4.3-11.1)
[2019-12-30] MEDS: MetroNIDAZOLE 500 MG/100 ML 500 MG/100 ML BAG IVPB SCH ×3 (05:05→22:06)
[2019-12-30 05:26] LABS: BUN/Creatinine Ratio 11 (6-26); Blood Urea Nitrogen 6 mg/dL (6-20); Calcium 8.2 mg/dL (8.6-10.3); Carbon Dioxide 26 mEq/L (23-29); Chloride 102 mEq/L (98-107); Glucose 105 mg/dL (70-105); Magnesium 1.8 mg/dL (1.6-2.6); Osmolality,Calculated 276 (280-300); Phosphorous 2.1 mg/dL (2.7-4.5); Potassium 3.4 mEq/L (3.5-5.1); Sodium 134 mEq/L (136-145); eGFR For African Americans > 60 (> 60); eGFR For Non-African Americans > 60 (> 60)
[2019-12-30] MEDS ORDERED: Potassium Phosphate 44 MEQ in 0.9 % Sodium Chloride 250 ML IVPB ONE (07:41)
[2019-12-30] MEDS: Pantoprazole 40 MG VIAL IVP SCH (09:40)
[2019-12-30] MEDS: D5% in 0.45% NACL 1,000 ML IVC SCH ×2 (09:41→13:47)
[2019-12-30] MEDS: Acetaminophen 325 MG TABLET PO PRN (17:49)
[2019-12-31] MEDS: D5% in 0.45% NACL 1,000 ML IVC SCH (00:56)
[2019-12-31] MEDS: Acetaminophen 325 MG TABLET PO PRN (03:00)
[2019-12-31 04:06] LABS: Basophils % 0.4 %; Eosinophils # 0.3 K/mcL (0.0-0.6); Eosinophils % 5.6 %; Hematocrit 29.8 % (35.3-44.9); Hemoglobin 9.5 g/dL (11.5-15.4); Immature Granulocytes % 0.2 % (0-4); Lymphocytes # 0.6 K/mcL (0.6-4.6); Lymphocytes % 13.9 %; Mean Corpuscular HGB Conc 31.9 g/dL (31.6-35.5); Mean Corpuscular Hemoglobin 30.8 pg (28.0-33.3); Mean Corpuscular Volume 96.8 fL (83.0-100.0); Mean Platelet Volume 10.3 fL (9.4-12.4); Monocytes # 0.6 K/mcL (0.0-1.3); Monocytes % 12.8 %; Platelet Count 162 K/mcL (140-400); Red Blood Count 3.08 M/mcL (3.82-4.97); Red Cell Distribution Width 15.3 % (11.5-14.5); Segmented Neutrophils % 67.1 %; White Blood Count 4.5 K/mcL (4.3-11.1)
[2019-12-31 04:26] LABS: BUN/Creatinine Ratio 6 (6-26); Blood Urea Nitrogen 3 mg/dL (6-20); Calcium 7.1 mg/dL (8.6-10.3); Carbon Dioxide 23 mEq/L (23-29); Chloride 90 mEq/L (98-107); Glucose 621 mg/dL (70-105); Magnesium 1.5 mg/dL (1.6-2.6); Osmolality,Calculated 278 (280-300); Phosphorous 2.7 mg/dL (2.7-4.5); Potassium 2.9 mEq/L (3.5-5.1); Sodium 121 mEq/L (136-145); eGFR For African Americans > 60 (> 60); eGFR For Non-African Americans > 60 (> 60)
[2019-12-31] MEDS: MetroNIDAZOLE 500 MG/100 ML 500 MG/100 ML BAG IVPB SCH (05:53)
[2019-12-31] MEDS: *HR* Heparin 5,000 UNIT/ML VIAL SQ SCH ×2 (05:54→18:59)
[2019-12-31] MEDS ORDERED: Potassium Phosphate 44 MEQ in 0.9 % Sodium Chloride 250 ML IVPB ONE (07:24)
[2019-12-31 10:29] LABS: BUN/Creatinine Ratio 6 (6-26); Blood Urea Nitrogen 3 mg/dL (6-20); Calcium 8.6 mg/dL (8.6-10.3); Carbon Dioxide 28 mEq/L (23-29); Chloride 102 mEq/L (98-107); Glucose 98 mg/dL (70-105); Osmolality,Calculated 279 (280-300); Potassium 3.1 mEq/L (3.5-5.1); Sodium 136 mEq/L (136-145); eGFR For African Americans > 60 (> 60); eGFR For Non-African Americans > 60 (> 60)
[2019-12-31] MEDS: Pantoprazole 40 MG VIAL IVP SCH (11:13)
[2019-12-31] MEDS: *HR* OxyCODONE Immed Rel 5 MG TABLET PO PRN (18:59)
[2020-01-01] MEDS: *HR* OxyCODONE Immed Rel 5 MG TABLET PO PRN ×3 (00:52→19:38)
[2020-01-01] MEDS: D5% in 0.45% NACL 1,000 ML IVC SCH ×2 (00:52→01:09)
[2020-01-01 03:43] LABS: Basophils % 0.9 %; Eosinophils # 0.2 K/mcL (0.0-0.6); Eosinophils % 5.2 %; Hematocrit 32.9 % (35.3-44.9); Hemoglobin 10.9 g/dL (11.5-15.4); Immature Granulocytes % 0.7 % (0-4); Lymphocytes # 0.8 K/mcL (0.6-4.6); Lymphocytes % 17.8 %; Mean Corpuscular HGB Conc 33.1 g/dL (31.6-35.5); Mean Corpuscular Hemoglobin 31.7 pg (28.0-33.3); Mean Corpuscular Volume 95.6 fL (83.0-100.0); Mean Platelet Volume 9.5 fL (9.4-12.4); Monocytes # 0.8 K/mcL (0.0-1.3); Monocytes % 16.9 %; Neutrophils # 2.7 K/mcL (1.6-8.9); Platelet Count 195 K/mcL (140-400); Red Blood Count 3.44 M/mcL (3.82-4.97); Red Cell Distribution Width 15.5 % (11.5-14.5); Segmented Neutrophils % 58.5 %; White Blood Count 4.6 K/mcL (4.3-11.1)
[2020-01-01 04:07] LABS: BUN/Creatinine Ratio 4 (6-26); Blood Urea Nitrogen 2 mg/dL (6-20); Calcium 8.3 mg/dL (8.6-10.3); Carbon Dioxide 28 mEq/L (23-29); Chloride 105 mEq/L (98-107); Glucose 99 mg/dL (70-105); Osmolality,Calculated 280 (280-300); Phosphorous 3.4 mg/dL (2.7-4.5); Potassium 3.9 mEq/L (3.5-5.1); Sodium 137 mEq/L (136-145); eGFR For African Americans > 60 (> 60); eGFR For Non-African Americans > 60 (> 60)
[2020-01-01] MEDS: *HR* Heparin 5,000 UNIT/ML VIAL SQ SCH ×2 (05:51→17:59)
[2020-01-01] MEDS: Pantoprazole 40 MG VIAL IVP SCH (09:08)
[2020-01-01] MEDS: Acetaminophen 325 MG TABLET PO PRN (18:00)
[2020-01-02] MEDS: Acetaminophen 325 MG TABLET PO PRN ×2 (04:09→11:27)
[2020-01-02 04:31] LABS: Basophils # 0.1 K/mcL (0.0-0.2); Basophils % 0.9 %; Eosinophils # 0.3 K/mcL (0.0-0.6); Eosinophils % 4.8 %; Hematocrit 34.3 % (35.3-44.9); Hemoglobin 11.2 g/dL (11.5-15.4); Immature Granulocytes % 1.5 % (0-4); Lymphocytes # 1.3 K/mcL (0.6-4.6); Lymphocytes % 18.4 %; Mean Corpuscular HGB Conc 32.7 g/dL (31.6-35.5); Mean Corpuscular Hemoglobin 30.9 pg (28.0-33.3); Mean Corpuscular Volume 94.8 fL (83.0-100.0); Mean Platelet Volume 9.5 fL (9.4-12.4); Monocytes # 0.9 K/mcL (0.0-1.3); Neutrophils # 4.2 K/mcL (1.6-8.9); Platelet Count 260 K/mcL (140-400); Red Blood Count 3.62 M/mcL (3.82-4.97); Red Cell Distribution Width 15.6 % (11.5-14.5); Segmented Neutrophils % 61.4 %; White Blood Count 6.8 K/mcL (4.3-11.1)
[2020-01-02 04:49] LABS: BUN/Creatinine Ratio 7 (6-26); Blood Urea Nitrogen 4 mg/dL (6-20); Calcium 8.7 mg/dL (8.6-10.3); Carbon Dioxide 28 mEq/L (23-29); Chloride 104 mEq/L (98-107); Glucose 96 mg/dL (70-105); Osmolality,Calculated 283 (280-300); Sodium 138 mEq/L (136-145); eGFR For African Americans > 60 (> 60); eGFR For Non-African Americans > 60 (> 60)
[2020-01-02] MEDS: *HR* Heparin 5,000 UNIT/ML VIAL SQ SCH (05:53)
[2020-01-02] MEDS: *HR* OxyCODONE Immed Rel 5 MG TABLET PO PRN (05:59)
[2020-01-02 11:29] VITALS: BP 124/81
== END 2020-01-02 13:54 | disposition home or self-care (01) | DRG 330 ==
LOC: EMEROOARM 19:59 → 3BNU 19:59 → SUATTDRO 22:34 → 3BNU 23:16 → 3ANU 12-26 17:59
PROVIDERS: ADMIT Internal Medicine; ATTEND Nurse Practitioner Adult Health